=== PATIENT | male | born 1985 | race African-American/Black ===

== ENCOUNTER 2018-01-14 11:06 | Emergency (ER) | payer SELFPAY ==
[~2018-01-14] VITALS: Ht 177.8 cm; Wt 92.7 kg
[2018-01-14 11:10] VITALS: BP 114/77
== END 2018-01-14 12:00 | disposition left against medical advice (07) ==
LOC: EMS 11:07
DX: F31.9 Bipolar disorder, unspecified (principal); R45.4 Irritability and anger; F20.9 Schizophrenia, unspecified; F41.9 Anxiety disorder, unspecified; F17.210 Nicotine dependence, cigarettes, uncomplicated
CPT/HCPCS: 99284